=== PATIENT | male | born 1935 | race Caucasian/White ===

== ENCOUNTER → 2016-09-23 | Outpatient (CLI) | payer MEDICARE, BC ==
[~2016-09-23] MED LIST: ALMACONE 360 M360 ML PO; ARICEPT 5MG PO; ASPIRIN 81M81 MG/TA2 PO; BYSTOLIC10 MG PO; CATAPRES 0.1MG0.1 MG PO; CATAPRES0.2 MG PO; COREG 25MG25 MG/TAB PO; DECADRON 4MG TAB4 MG PO; DIOVAN 40MG40 MG PO; DULCOLAX S10 MG/SUPP RC; KEPPRA 500MG500 MG PO; LEVAQUIN 2250 MG/TAB PO; LIPITOR20 MG PO; MILK OF MA400 MG/52 PO; PRINIVIL10 MG PO; SYNTHROID 0.0.025 MG PO; TEMODAR250 MG PO; [UNRECOGNIZED DRUG - OTHER]
== END ==
LOC: COL.RAD 09:00
DX: C71.1 Malignant neoplasm of frontal lobe (principal)
CPT/HCPCS: A9585

== ENCOUNTER 2016-11-08 11:09 | Emergency (ER) | payer MEDICARE, BC ==
[2006-06-02 12:40] VITALS: BP 183/84
[~2016-11-08] VITALS: Ht 167.6 cm; Wt 74.5 kg
[~2016-11-08 11:09] MED LIST changes: -ALMACONE 360 M360 ML PO; -CATAPRES0.2 MG PO; -COREG 25MG25 MG/TAB PO; -DULCOLAX S10 MG/SUPP RC; -LEVAQUIN 2250 MG/TAB PO; -MILK OF MA400 MG/52 PO; -SYNTHROID 0.0.025 MG PO
[2016-11-08 12:15] LABS: BASO % 0.5 % (0.0-2.0); EOS # 0.1 (0.0-0.7); EOS % 2.4 % (0-4.0); GRAN # 4.1 (1.4-6.5); GRAN % 70.8 % (42.2-75.2); HEMATOCRIT 41.1 % (42.0-52.0); HEMOGLOBIN 14.3 g/dl (13.5-18.0); LYMPH % 17.2 % (20.0-51.0); MEAN CELL VOLUME 94 fl (80.0-100.0); MEAN CORPUSCULAR HEMOGLOBIN 33 pg (27.0-31.0); MEAN CORPUSCULAR HGB CONC 35 g/dl (33.0-37.0); MEAN PLATELET VOLUME 9.5 fl (7.4-10.4); MONO # 0.5 (0.1-0.6); MONO % 8.9 % (1.7-9.3); PLATELET COUNT 113 K/mm3 (130-400); RED BLOOD COUNT 4.38 M/mm3 (4.20-5.60); REDCELL DISTRIBUTION WIDTH-CV 12.8 % (11.5-14.5); WHITE BLOOD COUNT 5.8 K/mm3 (4.8-10.8)
[2016-11-08 12:28] LABS: ADJUSTED CALCIUM 9.6 mg/dL (8.4-10.2); ALBUMIN 3.8 gm/dL (3.5-5.0); BILIRUBIN,TOTAL 0.7 mg/dL (0.0-1.0); CALCIUM 9.4 mg/dL (8.4-10.2); TOTAL PROTEIN 6.4 gm/dL (6.4-8.2)
[2016-11-08] MEDS ORDERED: MILK OF MA400 MG/52 PO (12:28)
[2016-11-08] MEDS ORDERED: ALMACONE 360 M360 ML PO (12:29)
[2016-11-08] MEDS ORDERED: DULCOLAX S10 MG/SUPP RC (12:30)
[2016-11-08] MEDS ORDERED: COREG 25MG25 MG/TAB PO (12:31)
[2016-11-08] MEDS ORDERED: SYNTHROID 0.0.025 MG PO (12:31)
[2016-11-08] MEDS ORDERED: CATAPRES0.2 MG PO (12:32)
[2016-11-08] MEDS ORDERED: CATAPRES 0.1MG0.1 MG PO (12:33)
[2016-11-08 13:45] LABS: PH 7 (5-8); SQUAMOUS EPITHELIAL None Seen /hpf; URINE APPEARANCE Clear; URINE BACTERIA None Seen /hpf; URINE BILIRUBIN Negative (NEGATIVE); URINE BLOOD Negative (NEGATIVE); URINE COLOR Yellow; URINE GLUCOSE Negative (NEGATIVE); URINE KETONE Negative (NEGATIVE); URINE UROBILINOGEN Negative (NEGATIVE); URINE WBC 20-50 /hpf
[2016-11-08] MEDS ORDERED: LEVAQUIN 2250 MG/TAB PO (14:50)
[2016-11-08 15:15] VITALS: BP 212/78; PULSE 45
== END 2016-11-08 15:15 | disposition home or self-care (01) ==
LOC: COL.ER 11:09
PROVIDERS: Emergency Medicine
DX: R41.82 Altered mental status, unspecified (principal); N39.0 Urinary tract infection, site not specified; B95.2 Enterococcus as the cause of diseases classified elsewhere; R00.1 Bradycardia, unspecified; I10 Essential (primary) hypertension; Z98.2 Presence of cerebrospinal fluid drainage device
CPT/HCPCS: J0696; J7030

== ENCOUNTER → 2016-12-13 | Outpatient (CLI) | payer MEDICARE, BC ==
[~2016-12-13] MED LIST changes: +ALMACONE 360 M360 ML PO; +CATAPRES0.2 MG PO; +COREG 25MG25 MG/TAB PO; +DULCOLAX S10 MG/SUPP RC; +LEVAQUIN 2250 MG/TAB PO; +MILK OF MA400 MG/52 PO; +SYNTHROID 0.0.025 MG PO
[2016-12-13 13:12] LABS: PH 7 (5-8); SQUAMOUS EPITHELIAL 0-2 /hpf; URINE APPEARANCE Clear; URINE BACTERIA None Seen /hpf; URINE BILIRUBIN Negative (NEGATIVE); URINE BLOOD Negative (NEGATIVE); URINE COLOR Yellow; URINE GLUCOSE Negative (NEGATIVE); URINE KETONE Negative (NEGATIVE); URINE UROBILINOGEN Negative (NEGATIVE)
== END ==
LOC: ZCOL.LAB 11:54
PROVIDERS: Family Medicine
DX: N39.0 Urinary tract infection, site not specified (principal)